=== PATIENT | female | born 1965 ===

== ENCOUNTER 2018-03-22 04:44 | Observation (INO) | payer BC ==
[2018-03-22 04:52] VITALS: BMI 24.1
[2018-03-22 05:16] LABS: BASO # 0.02 K/mm3 (0.0-2.0); BASO % 0.3 % (0.0-3.0); EOS # 0.2 (0.0-0.7); EOS % 2.6 % (1.5-5.0); GRAN # 5.14 (1.4-6.5); GRAN % 66.6 % (50.0-68.0); LYMPH # 1.8 (1.2-3.4); LYMPH % 22.9 % (22.0-35.0); MEAN CELL VOLUME 78.3 fl (80.0-105.0); MEAN CORPUSCULAR HEMOGLOBIN 25.4 pg (25.0-35.0); MEAN CORPUSCULAR HGB CONC 32.5 g/dl (31.0-37.0); MEAN PLATELET VOLUME 9.3 fl (7.0-11.0); MONO # 0.6 (0.1-0.6); MONO % 7.6 % (1.0-6.0); RBC 5.11 10^6/uL (3.5-6.1); RED CELL DISTRIBUTION WIDTH 14.2 % (11.5-14.5); WHITE BLOOD COUNT 7.7 10^3/uL (4.5-11.0)
--- NOTE | 2018-03-22 05:20 | ED PDOC ---
Arrival/HPI - General Time Seen by Provider: 03/22/18 05:03 Historian: Patient - History of Present Illness Narrative History of Present Illness (Text): 03/22/18 05:11 53 year old female, whose past medical history includes recent vaginoplasty (03/09/18), presents to the emergency department with vaginal bleeding, since 1 hour. Patient informs that since the procedure, she has mad minor bleeding, but nothing alarming. Patient informs today she woke up and found herself bleeding profusely. Patient states procedure was done at Dr Salazar's clinic. Patient denies any fevers, chills, headache, dizziness, chest pain, shortness of breath, cough, back pain, neck pain, or any other complaint. Gynecology: Dr Franklyn Salazar III Time/Duration: 1 hour Symptom Onset: Sudden Symptom Course: Unchanged Quality: Other (BLEEDING) Severity Level: Severe Activities at Onset: Sleeping Context: Home Past Medical History - Provider Review Nursing Documentation Reviewed: Yes Family/Social History - Physician Review Nursing Documentation Reviewed: Yes Family/Social History: No Known Family HX Allergies/Home Meds Allergies/Adverse Reactions: Allergies No Known Allergies Allergy (Verified 03/22/18 05:01) Review of Systems - Physician Review All systems were reviewed & negative as marked: Yes - Review of Systems Respiratory: absent: SOB Neurological: absent: Headache Physical Exam - Physical Exam Narrative Physical Exam (Text): 03/22/18 05:22 Constitutional: No acute distress. Head: Normocephalic. Atraumatic. Eyes: PERRL. ENT: Moist mucous membranes. Neck: Supple. Cardiovascular: Regular rhythm, tachycardic. Chest: No tenderness. Respiratory: Clear to auscultation bilaterally. GI: Soft. Nontender. Nondistended. Back: No CVA tenderness. Musculoskeletal: No tenderness or swelling of extremities. Skin: No rash. Neurologic: Alert, no focal deficit. Genitourinary: Significant amount of continuous bleeding, with clots. Vital Signs Reviewed: Yes Vital Signs Temp Pulse Resp BP Pulse Ox 03/22/18 05:02 97.8 F 140 H 20 127/108 H 100 Temperature: Afebrile Blood Pressure: Hypertensive Pulse: Tachycardic Respiratory Rate: Normal Appearance: Positive for: Well-Appearing, Non-Toxic, Comfortable Pain Distress: None Mental Status: Positive for: Alert and Oriented X 3 Medical Decision Making ED Course and Treatment: 03/22/18 05:23 Impression: 53 year old female presents with profuse vaginal bleeding. Plan: -- Labs -- CMP -- CBC, Platelets -- Reassess and disposition Prior Visits: Notes and results from previous visits were reviewed. Progress Notes: Patient being monitored on continuous cardic monitor. Discussed case with surgeon Roly Weller via phone, he states he will come to ED, arrive at approximately 7am. Signed out to ED day team at change of shift. - Scribe Statement The provider has reviewed the documentation as recorded by the Scribe Roberto Foley Provider Scribe Attestation: All medical record entries made by the Scribe were at my direction and personally dictated by me. I have reviewed the chart and agree that the record accurately reflects my personal performance of the history, physical exam, medical decision making, and the department course for this patient. I have also personally directed, reviewed, and agree with the discharge instructions and disposition. Disposition/Present on Arrival - Present on Arrival Any Indicators Present on Arrival: No - Disposition Have Diagnosis and Disposition been Completed?: Yes Diagnosis: Postoperative vaginal bleeding Disposition Time: 06:21 Condition: FAIR
[2018-03-22 05:29] LABS: ALB/GLOB RATIO 1.2 (1.1-1.8); ALBUMIN 4.5 g/dL (3.0-4.8); ALT/SGPT 20 U/L (7-56); AST/SGOT 21 U/L (14-36); BLOOD UREA NITROGEN 16 mg/dL (7-21); CALCIUM 9.1 mg/dL (8.4-10.5); GFR NON-AFRICAN AMERICAN > 60
[2018-03-22 05:33] LABS: INR 1.15; PARTIAL THROMBOPLASTIN TIME 27.9 Seconds (25.1-36.5); PROTHROMBIN TIME 13.3 SECONDS (9.4-12.5)
[2018-03-22] MEDS ORDERED: Tranexamic Acid 1,000 MG in Sodium Chloride 0.9% 50 ML IV STA (05:45)
[2018-03-22] MEDS ORDERED: Sodium Chloride 0.9% 1,000 ML IV STA ×2 (07:54→13:57)
[2018-03-22 08:25] LABS: BASO # 0.03 K/mm3 (0.0-2.0); BASO % 0.4 % (0.0-3.0); EOS # 0.1 (0.0-0.7); EOS % 0.8 % (1.5-5.0); GRAN # 6.23 (1.4-6.5); HEMOGLOBIN 9.7 g/dL (12.0-16.0); LYMPH # 1.5 (1.2-3.4); LYMPH % 18.1 % (22.0-35.0); MEAN CELL VOLUME 79.4 fl (80.0-105.0); MEAN CORPUSCULAR HEMOGLOBIN 24.7 pg (25.0-35.0); MEAN CORPUSCULAR HGB CONC 31.1 g/dl (31.0-37.0); MEAN PLATELET VOLUME 9.4 fl (7.0-11.0); MONO # 0.5 (0.1-0.6); MONO % 5.7 % (1.0-6.0); RBC 3.93 10^6/uL (3.5-6.1); RED CELL DISTRIBUTION WIDTH 14.1 % (11.5-14.5); WHITE BLOOD COUNT 8.3 10^3/uL (4.5-11.0)
--- NOTE | 2018-03-22 11:09 | CON ---
DATE: 03/22/2018 EMERGENCY ROOM CONSULT HISTORY OF PRESENT ILLNESS: This is a 53-year-old female presenting with vaginal bleeding 2 weeks after an uncomplicated posterior colporrhaphy. The patient was found to be in stable condition with vital signs within the normal range and a hemoglobin within the normal range. She had presented with approximately 2 hours of heavy bleeding proceeded by 2 days of light bleeding, painless, and otherwise asymptomatic. She was examined and found to have clotted blood in the vaginal vault approximately 50 mL. This was cleaned off and the suture line was inspected. Suture line is extending from the perineum along the midline of the posterior vaginal wall to the level of the mid vagina. Bimanual and rectovaginal examination confirmed an intact suture line, and no active bleeding, but a small area of suture disruption at the apex of the posterior wall vaginal incision. The area was inspected and noted to be hemostatic and was packed with Iodoform packing. The patient was observed for a brief period afterwards and was instructed to follow up at my office the following morning. She was given contact information and was in stable condition. Roly Salazar III, MD
[2018-03-22 12:13] LABS: ALB/GLOB RATIO 1.2 (1.1-1.8); ALBUMIN 3.1 g/dL (3.0-4.8); ALT/SGPT 21 U/L (7-56); AST/SGOT 17 U/L (14-36); BLOOD UREA NITROGEN 12 mg/dL (7-21); CALCIUM 7.7 mg/dL (8.4-10.5); GFR NON-AFRICAN AMERICAN > 60
--- NOTE | 2018-03-22 12:57 | CP.PCM.HP ---
<Darci Santos - Last Filed: 03/22/18 14:43> History of Present Illness - History of Present Illness History of Present Illness: Darci Santos, PGY1 Medicine History and Physical for Dr. Shafer Patient is a 53 year old female with PMHx of recent vaginoplasty (03/09/18), presented to the ED with vaginal bleeding x2 weeks in duration followed by vaginoplasty. Patient said that today her bleeding was worsening. She noticed clotted blood in her vagina. This prompted her to come to the ED. Patient states her vaginoplasty procedure was done by her [employer] physician, Dr Salazar. In the ED, vital signs were stable. Dr. Salazar came to evaluate the patient this morning and localized the patient's vaginal bleeding and sutured the area with packing in place. However, patient was noted to have a drop in hemoglobin and she had an episode of near-syncope in the ED. As a result, medical team was consulted for evaluation. Patient was examined in the ED at bedside. She explained that the reason for her vaginoplasty procedure on 03/09 was because of vaginal prolapse due to a previous childbirth. Patient claims that she did have some dizziness in the ED. She said she was falling down but caught herself. She denied hitting her head. She had no loss of consciousness. At this time, patient did not endorse chest pain, lightheadedness, dizziness, fatigue, nausea, vomiting, abdominal pain. She has some mild pelvic pain. No urinary frequency, urgency, or dysuria. A full 12 point ROS was conducted and unremarkable except as stated above. PMHx: Vaginoplasty PSHx: Vaginoplasty (03/09/18) Meds: none Allergies: NKDA SocialHx: denies smoking, drinking, and recreational drug use. 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 FHx: Liver disease in father (). Otherwise, non-contributory. Present on Admission - Present on Admission Any Indicators Present on Admission: No Review of Systems - Review of Systems All systems: reviewed and no additional remarkable complaints except (as per HPI.) Past Patient History - Past Social History Smoking Status: Never Smoked - PSYCHIATRIC Hx Substance Use: No - SURGICAL HISTORY Hx Surgeries: Yes Meds Allergies/Adverse Reactions: Allergies Allergy/AdvReac Type Severity Reaction Status Date / Time No Known Allergies Allergy Verified 03/22/18 05:01 Physical Exam - Head Exam Head Exam: ATRAUMATIC, NORMAL INSPECTION, NORMOCEPHALIC - Eye Exam Eye Exam: EOMI, Normal appearance Pupil Exam: PERRL - ENT Exam ENT Exam: Mucous Membranes Moist - Respiratory Exam Respiratory Exam: Clear to Auscultation Bilateral. absent: Rales, Rhonchi, Whe ezes - Cardiovascular Exam Cardiovascular Exam: REGULAR RHYTHM, RRR, +S1, +S2 - GI/Abdominal Exam GI & Abdominal Exam: Normal Bowel Sounds, Soft. absent: Firm, Guarding, Organomegaly, Rebound, Rigid, Tenderness - Exam Additional comments: No external bleeding noted on vaginal exam. Suture and packing was in place. Supervised by female resident physician. - Extremities Exam Extremities exam: Positive for: full ROM, normal capillary refill, normal inspection, pedal pulses present. Negative for: calf tenderness, pedal edema, tenderness - Back Exam Back exam: NORMAL INSPECTION - Neurological Exam Neurological exam: Alert, CN II-XII Intact, Normal Gait, Oriented x3 - Psychiatric Exam Psychiatric exam: Normal Affect, Normal Mood - Skin Skin Exam: Dry, Intact, Normal Color, Warm Results - Vital Signs Recent Vital Signs: Last Vital Signs Temp 97.8 F 03/22/18 05:02 Pulse 99 H 03/22/18 11:14 Resp 20 03/22/18 11:14 BP 85/43 L 03/22/18 11:14 Pulse Ox 98 03/22/18 11:14 - Labs Result Diagrams: 03/22/18 08:15 03/22/18 11:18 Labs: Laboratory Results - last 24 hr 03/22/18 03/22/18 03/22/18 05:03 05:03 05:03 WBC 7.7 RBC 5.11 Hgb 13.0 Hct 40.0 MCV 78.3 L MCH 25.4 MCHC 32.5 RDW 14.2 Plt Count 310 MPV 9.3 Gran % 66.6 Lymph % (Auto) 22.9 Cannon % (Auto) 7.6 H Eos % (Auto) 2.6 Baso % (Auto) 0.3 Gran # 5.14 Lymph # (Auto) 1.8 Cannon # (Auto) 0.6 Eos # (Auto) 0.2 Baso # (Auto) 0.02 PT 13.3 H INR 1.15 APTT 27.9 Sodium 138 Potassium 3.7 Chloride 102 Carbon Dioxide 26 Anion Gap 13 BUN 16 Creatinine 0.7 Est GFR ( Amer) > 60 Est GFR (Non-Af Amer) > 60 Random Glucose 154 H Calcium 9.1 Total Bilirubin 0.4 AST 21 ALT 20 Alkaline Phosphatase 93 Total Protein 8.1 Albumin 4.5 Globulin 3.6 Albumin/Globulin Ratio 1.2 Blood Type Blood Type Confirm Antibody Screen BBK History Checked 03/22/18 03/22/18 03/22/18 05:24 05:50 08:15 WBC 8.3 RBC 3.93 Hgb 9.7 L D Hct 31.2 L MCV 79.4 L MCH 24.7 L MCHC 31.1 RDW 14.1 Plt Count 257 MPV 9.4 Gran % 75.0 H Lymph % (Auto) 18.1 L Cannon % (Auto) 5.7 Eos % (Auto) 0.8 L Baso % (Auto) 0.4 Gran # 6.23 Lymph # (Auto) 1.5 Cannon # (Auto) 0.5 Eos # (Auto) 0.1 Baso # (Auto) 0.03 PT INR APTT Sodium Potassium Chloride Carbon Dioxide Anion Gap BUN Creatinine Est GFR ( Amer) Est GFR (Non-Af Amer) Random Glucose Calcium Total Bilirubin AST ALT Alkaline Phosphatase Total Protein Albumin Globulin Albumin/Globulin Ratio Blood Type O POSITIVE Blood Type Confirm O POSITIVE Antibody Screen Negative BBK History Checked No verified bt 03/22/18 11:18 WBC RBC Hgb Hct MCV MCH MCHC RDW Plt Count MPV Gran % Lymph % (Auto) Cannon % (Auto) Eos % (Auto) Baso % (Auto) Gran # Lymph # (Auto) Cannon # (Auto) Eos # (Auto) Baso # (Auto) PT INR APTT Sodium 139 Potassium 3.7 Chloride 110 H Carbon Dioxide 22 Anion Gap 11 BUN 12 Creatinine 0.5 L Est GFR ( Amer) > 60 Est GFR (Non-Af Amer) > 60 Random Glucose 107 Calcium 7.7 L Total Bilirubin 0.3 AST 17 ALT 21 Alkaline Phosphatase 65 Total Protein 5.8 Albumin 3.1 Globulin 2.7 Albumin/Globulin Ratio 1.2 Blood Type Blood Type Confirm Antibody Screen BBK History Checked Assessment & Plan - Assessment and Plan (Free Text) Assessment: Patient is a 53 year old female with PMHx of recent vaginoplasty (03/09/18), presented to the ED with worsening vaginal bleeding x2 weeks in duration followed by vaginoplasty. Patient was evaluated by her [employer] physician (Dr. Salazar) and bleeding was localized and sutures and packing were placed. Patient will be monitored on the floor for dizziness and a fall due to her vaginal bleeding. Plan: Dizziness and fall 2/2 Orthostatic Hypotension due to vaginal bleeding - Hgb drop from 13 to 9.7 (baseline unknown). Patient was tachycardic with HR 100s and hypotensive. She is stable and comfortable. If Hgb continues to downtrend, then will consider transfusion. - Maintenance IVF NS @ 150 cc/hr - Patient was hypotensive, BP 89/70. Will continue to monitor blood pressure. Given x2 NS boluses. - cbc q6; monitor H/H - Bed-rest due to fall; denies hitting head, loss of consciousness, exam is grossly normal and does not require further workup - orthostatic vital signs in the morning - Tylenol prn for mild pelvic pain - EKG: sinus tachycardia. No acute ST or T wave changes. - Patient has Hx of recent vaginoplasty on 03/09 due to vaginal prolapse 2/2 previous childbirth Anemia likely 2/2 vaginal bleed - iron studies ordered: iron, ferritin, TIBC, trasferrin saturation, reticulocyt e count - monitor H/H with cbc q6 DVT ppx: SCD GI ppx: PTX Diet: regular Dispo: Patient will be monitored on telemetry. Will monitor cbc q6 and transfuse if downtrending hemoglobin. Otherwise, encourage bed-rest and hydration. Case was discussed and reviewed with Dr. Shafer <Antonio Shafer - Last Filed: 03/23/18 16:46> Results - Vital Signs Recent Vital Signs: Last Vital Signs Temp 97.5 F L 03/23/18 12:00 Pulse 120 H 03/23/18 13:00 Resp 21 03/23/18 12:00 BP 116/78 03/23/18 12:00 Pulse Ox 98 03/23/18 09:00 - Labs Result Diagrams: 03/23/18 12:10 03/23/18 06:30 Labs: Laboratory Results - last 24 hr 03/22/18 03/22/18 03/22/18 05:24 15:30 15:30 WBC RBC Hgb Hct MCV MCH MCHC RDW Plt Count MPV Gran % Lymph % (Auto) Cannon % (Auto) Eos % (Auto) Baso % (Auto) Gran # Lymph # (Auto) Cannon # (Auto) Eos # (Auto) Baso # (Auto) Sodium Potassium Chloride Carbon Dioxide Anion Gap BUN Creatinine Est GFR ( Amer) Est GFR (Non-Af Amer) Random Glucose Calcium Transferrin 209.45 Ferritin 28.6 Total Bilirubin AST ALT Alkaline Phosphatase Total Protein Albumin Globulin Albumin/Globulin Ratio Blood Type O POSITIVE Antibody Screen Negative Crossmatch See Detail BBK History Checked No verified bt 03/23/18 03/23/18 03/23/18 00:30 06:30 06:30 WBC 7.4 6.0 RBC 3.62 3.41 L Hgb 9.7 L D 9.1 L Hct 29.4 L 27.6 L MCV 81.2 80.9 MCH 26.8 26.7 MCHC 33.0 33.0 RDW 15.1 H 15.0 H Plt Count 190 194 MPV 8.9 9.2 Gran % 60.0 Lymph % (Auto) 27.6 Cannon % (Auto) 9.7 H Eos % (Auto) 2.5 Baso % (Auto) 0.2 Gran # 3.58 Lymph # (Auto) 1.7 Cannon # (Auto) 0.6 Eos # (Auto) 0.2 Baso # (Auto) 0.01 Sodium 139 Potassium 3.8 Chloride 110 H Carbon Dioxide 28 Anion Gap 5 L BUN 6 L Creatinine 0.6 L Est GFR ( Amer) > 60 Est GFR (Non-Af Amer) > 60 Random Glucose 91 Calcium 7.8 L Transferrin Ferritin Total Bilirubin 0.5 AST 23 ALT 28 Alkaline Phosphatase 59 Total Protein 5.0 L Albumin 2.7 L Globulin 2.3 Albumin/Globulin Ratio 1.2 Blood Type Antibody Screen Crossmatch BBK History Checked 03/23/18 12:10 WBC 7.0 RBC 3.81 Hgb 10.1 L Hct 30.7 L MCV 80.6 MCH 26.5 MCHC 32.9 RDW 14.9 H Plt Count 208 MPV 9.1 Gran % Lymph % (Auto) Cannon % (Auto) Eos % (Auto) Baso % (Auto) Gran # Lymph # (Auto) Cannon # (Auto) Eos # (Auto) Baso # (Auto) Sodium Potassium Chloride Carbon Dioxide Anion Gap BUN Creatinine Est GFR ( Amer) Est GFR (Non-Af Amer) Random Glucose Calcium Transferrin Ferritin Total Bilirubin AST ALT Alkaline Phosphatase Total Protein Albumin Globulin Albumin/Globulin Ratio Blood Type Antibody Screen Crossmatch BBK History Checked Attending/Attestation - Attestation I have personally seen and examined this patient.: Yes I have fully participated in the care of the patient.: Yes I have reviewed all pertinent clinical information: Yes Notes (Text): 03/23/18 16:42 Medical record note made by the resident after discussion with my direction and input after the patient was personally seen and examined by me. I have reviewed the chart and agree that the record accurately reflects by personal performance of the history, physical exam, data review, and medical decision-making, in the course for the patient. I have also personally directed the plan of care. 53 year old female with PMHx of recent vaginoplasty (03/09/18), presented to the ED with vaginal bleeding x2 weeks in duration followed by vaginoplasty. Patient said that today her bleeding was worsening. She noticed clotted blood in her vagina. Patient was evaluated by her OBGYN . Dr. Salazar , he localized the patient's vaginal bleeding and sutured the area with packing in place. Patient is hypotensive and tachycardiac , Hemoglobin has dropped to 7.6. We will transfuse 2 units of PRBC and will monitor hemoglobin and hematocrit. Management plan was discussed in detail with patient. Education was provided.
[2018-03-22] MEDS ORDERED: Sodium Chloride 0.9% 1,000 ML IV SCH (13:00)
[2018-03-22 15:29] LABS: HEMOGLOBIN 7.6 g/dL (12.0-16.0); MEAN CELL VOLUME 78.8 fl (80.0-105.0); MEAN CORPUSCULAR HEMOGLOBIN 25.6 pg (25.0-35.0); MEAN CORPUSCULAR HGB CONC 32.5 g/dl (31.0-37.0); MEAN PLATELET VOLUME 9.1 fl (7.0-11.0); RBC 2.97 10^6/uL (3.5-6.1); RED CELL DISTRIBUTION WIDTH 14.3 % (11.5-14.5); WHITE BLOOD COUNT 9.2 10^3/uL (4.5-11.0)
[2018-03-22 15:56] LABS: IRON 70 ug/dL (45-180)
[2018-03-22 16:06] LABS: % IRON SATURATION 24 % (20-55); TOTAL IRON BINDING CAPACITY 288 ug/dL (265-497)
[2018-03-22] MEDS ORDERED: Pneumococcal 23-Valent Vaccine IM ONE (17:35)
[2018-03-22] MEDS ORDERED: Influenza Vaccine 60 mcg/0.5 mL SYR (4YR UP) IM ONE (17:35)
--- NOTE | 2018-03-22 23:03 | CARD ---
APPROVED REPORT Date of service: 03/22/2018 EKG Measurement Heart [id number] <Conclusion> Sinus tachycardia Small non diagnostic Q waves in the inferior leads Otherwise normal ECG
--- NOTE | 2018-03-22 23:33 | CARD ---
APPROVED REPORT Date of service: 03/22/2018 EKG Measurement Heart [id number] <Conclusion> Sinus tachycardia Baseline artifact Minor NDSTT abnormalities- probably rate related Otherwise normal ECG
[2018-03-22] MEDS: Sodium Chloride 0.9% 1,000 ML IV SCH (23:57)
[2018-03-23] MEDS ORDERED: Pantoprazole 40 mg EC Tab PO SCH (06:00)
[2018-03-23] MEDS: Sodium Chloride 0.9% 1,000 ML IV SCH (06:08)
[2018-03-23 06:45] LABS: HEMOGLOBIN 9.7 g/dL (12.0-16.0); MEAN CELL VOLUME 81.2 fl (80.0-105.0); MEAN CORPUSCULAR HEMOGLOBIN 26.8 pg (25.0-35.0); MEAN PLATELET VOLUME 8.9 fl (7.0-11.0); RBC 3.62 10^6/uL (3.5-6.1); RED CELL DISTRIBUTION WIDTH 15.1 % (11.5-14.5); WHITE BLOOD COUNT 7.4 10^3/uL (4.5-11.0)
[2018-03-23 07:19] LABS: BASO # 0.01 K/mm3 (0.0-2.0); BASO % 0.2 % (0.0-3.0); EOS # 0.2 (0.0-0.7); EOS % 2.5 % (1.5-5.0); GRAN # 3.58 (1.4-6.5); HEMOGLOBIN 9.1 g/dL (12.0-16.0); LYMPH # 1.7 (1.2-3.4); LYMPH % 27.6 % (22.0-35.0); MEAN CELL VOLUME 80.9 fl (80.0-105.0); MEAN CORPUSCULAR HEMOGLOBIN 26.7 pg (25.0-35.0); MEAN PLATELET VOLUME 9.2 fl (7.0-11.0); MONO # 0.6 (0.1-0.6); MONO % 9.7 % (1.0-6.0); RBC 3.41 10^6/uL (3.5-6.1)
[2018-03-23 07:41] LABS: ALB/GLOB RATIO 1.2 (1.1-1.8); ALBUMIN 2.7 g/dL (3.0-4.8); ALT/SGPT 28 U/L (7-56); AST/SGOT 23 U/L (14-36); BLOOD UREA NITROGEN 6 mg/dL (7-21); CALCIUM 7.8 mg/dL (8.4-10.5); GFR NON-AFRICAN AMERICAN > 60
[2018-03-23 12:34] LABS: HEMOGLOBIN 10.1 g/dL (12.0-16.0); MEAN CELL VOLUME 80.6 fl (80.0-105.0); MEAN CORPUSCULAR HEMOGLOBIN 26.5 pg (25.0-35.0); MEAN CORPUSCULAR HGB CONC 32.9 g/dl (31.0-37.0); MEAN PLATELET VOLUME 9.1 fl (7.0-11.0); RBC 3.81 10^6/uL (3.5-6.1); RED CELL DISTRIBUTION WIDTH 14.9 % (11.5-14.5)
--- NOTE | 2018-03-23 14:09 | CP.PCM.DIS ---
<TomDarci - Last Filed: 03/23/18 17:13> Provider - Provider Date of Admission: 03/22/18 11:27 Attending physician: Antonio Shafer MD Consults: 03/22/18 14:05 Physician Consult Routine Comment: Consulting Provider: Roly Salazar III Consulting Physician: Roly Salazar III Reason for Consult: vaginal bleed s/p vaginoplasty Time Spent in preparation of Discharge (in minutes): 35 Hospital Course - Lab Results Lab Results: Most Recent Lab Values WBC 7.0 10^3/uL (4.5-11.0) 03/23/18 12:10 RBC 3.81 10^6/uL (3.5-6.1) 03/23/18 12:10 Hgb 10.1 g/dL (12.0-16.0) L 03/23/18 12:10 Hct 30.7 % (36.0-48.0) L 03/23/18 12:10 MCV 80.6 fl (80.0-105.0) 03/23/18 12:10 MCH 26.5 pg (25.0-35.0) 03/23/18 12:10 MCHC 32.9 g/dl (31.0-37.0) 03/23/18 12:10 RDW 14.9 % (11.5-14.5) H 03/23/18 12:10 Plt Count 208 10^3/uL (120.0-450.0) 03/23/18 12:10 MPV 9.1 fl (7.0-11.0) 03/23/18 12:10 Gran % 60.0 % (50.0-68.0) 03/23/18 06:30 Lymph % (Auto) 27.6 % (22.0-35.0) 03/23/18 06:30 [place] % (Auto) 9.7 % (1.0-6.0) H 03/23/18 06:30 Eos % (Auto) 2.5 % (1.5-5.0) 03/23/18 06:30 Baso % (Auto) 0.2 % (0.0-3.0) 03/23/18 06:30 Gran # 3.58 (1.4-6.5) 03/23/18 06:30 Lymph # (Auto) 1.7 (1.2-3.4) 03/23/18 06:30 [place] # (Auto) 0.6 (0.1-0.6) 03/23/18 06:30 Eos # (Auto) 0.2 (0.0-0.7) 03/23/18 06:30 Baso # (Auto) 0.01 K/mm3 (0.0-2.0) 03/23/18 06:30 Retic Count 1.15 % (0.5-1.5) 03/22/18 15:30 PT 13.3 SECONDS (9.4-12.5) H 03/22/18 05:03 INR 1.15 03/22/18 05:03 APTT 27.9 Seconds (25.1-36.5) 03/22/18 05:03 Sodium 139 mmol/L (132-148) 03/23/18 06:30 Potassium 3.8 mmol/L (3.6-5.0) 03/23/18 06:30 Chloride 110 mmol/L (98-107) H 03/23/18 06:30 Carbon Dioxide 28 mmol/L (21-33) 03/23/18 06:30 Anion Gap 5 (10-20) L 03/23/18 06:30 BUN 6 mg/dL (7-21) L 03/23/18 06:30 Creatinine 0.6 mg/dl (0.7-1.2) L 03/23/18 06:30 Est GFR ( Amer) > 60 03/23/18 06:30 Est GFR (Non-Af Amer) > 60 03/23/18 06:30 Random Glucose 91 mg/dL (70-110) 03/23/18 06:30 Calcium 7.8 mg/dL (8.4-10.5) L 03/23/18 06:30 Iron 70 ug/dL (45-180) 03/22/18 15:30 TIBC 288 ug/dL (265-497) 03/22/18 15:30 % Saturation 24 % (20-55) 03/22/18 15:30 Transferrin 209.45 mg/dL (206-381) 03/22/18 15:30 Ferritin 28.6 ng/mL 03/22/18 15:30 Total Bilirubin 0.5 mg/dL (0.2-1.3) 03/23/18 06:30 AST 23 U/L (14-36) 03/23/18 06:30 ALT 28 U/L (7-56) 03/23/18 06:30 Alkaline Phosphatase 59 U/L (38-126) 03/23/18 06:30 Total Protein 5.0 g/dL (5.8-8.3) L 03/23/18 06:30 Albumin 2.7 g/dL (3.0-4.8) L 03/23/18 06:30 Globulin 2.3 gm/dL 03/23/18 06:30 Albumin/Globulin Ratio 1.2 (1.1-1.8) 03/23/18 06:30 Blood Type O POSITIVE 03/22/18 05:24 Blood Type Confirm O POSITIVE 03/22/18 05:50 Antibody Screen Negative 03/22/18 05:24 Crossmatch See Detail 03/22/18 05:24 BBK History Checked No verified bt 03/22/18 05:24 - Hospital Course Hospital Course: Darci Santos, PGY1 Discharge Summary for Dr. Shafer Patient is a 53 year old female with PMHx of recent vaginoplasty (03/09/18) who presented to the ED for vaginal bleeding x2 weeks in duration since her recent vaginoplasty procedure for vaginal prolapse due to previous childbirth. Bleeding was worsening and sh had noticed clotting of blood in her vagina; this prompted her to come to the ED. Patient states her vaginoplasty procedure was done by her [facility] physician, Dr Salazar. In the ED, vital signs were stable. Her [facility] Physician, Dr. Salazar came to evaluate the patient at [facility] [place]; he localized the patient's vaginal bleeding and sutured the area with packing in place. However, during this time, patient was noted to have a drop in her Hemoglobin and she became symptomatic -- with dizziness and fall (did not hit her head). Medical team was consulted for evaluation. Patient admitted to telemetry for monitoring. She was admitted for dizziness and fall 2/2 orthostatic hypotension due to vaginal bleeding after recent vaginoplasty. Patient had x2 transfusions pRBC during hospital course. Her Hemoglobin (initially presented Hgb 13) had dropped down to 7.6 but after transfusion it improved to 9.7. Patient on examination is not overtly bleeding. Fam was placed since she had some urinary retention and difficulty urinating. Fam was eventually removed and she is voiding fine. Patient is hemodynamically stable. She is asymptomatic. Labs and vitals reviewed, patient is safe for discharge home. She will follow up with her [facility] physician as outpatient. Discharge Exam - Head Exam Head Exam: ATRAUMATIC, NORMAL INSPECTION, NORMOCEPHALIC - Eye Exam Eye Exam: Normal appearance - ENT Exam ENT Exam: Mucous Membranes Moist - Respiratory Exam Respiratory Exam: Clear to PA & Lateral, UNREMARKABLE. absent: Accessory Muscle Use, Rales, Rhonchi, Wheezes, Stridor - Cardiovascular Exam Cardiovascular Exam: RRR, +S1, +S2 - GI/Abdominal Exam GI & Abdominal Exam: Normal Bowel Sounds, Soft. absent: Distended, Firm, Guarding, Mass, Rigid, Tenderness - Exam Additional comments: Vaginal exam: sutures in place. No bleeding or signs of infection. - Extremities Exam Extremities exam: full ROM, normal capillary refill, normal inspection, pedal pulses present - Neurological Exam Neurological exam: Alert, CN II-XII Intact, Normal Gait, Oriented x3, Reflexes Normal - Psychiatric Exam Psychiatric exam: Normal Affect, Normal Mood - Skin Skin Exam: Dry, Intact, Normal Color, Warm Discharge Plan - Discharge Medications Prescriptions: Docusate Sodium [Colace] 100 mg PO DAILY PRN #30 capsule PRN Reason: Constipation RX: Ferrous Sulfate [Feosol] 324 mg PO TID #90 ect - Follow Up Plan Condition: FAIR Disposition: HOME/ ROUTINE Instructions: Syncope (Fainting) Additional Instructions: 1. Please follow up with your primary medical doctor within 3-5 days of discharge. 2. You have been discharged home with the following medications: - Ferrous Sulfate 324mg one pill 3 times per day (Iron pill for anemia)- this can make you constipated - Colace 100mg one pill once daily NEEDED for constipation 3. Follow up with Dr Salazar. ([facility]) on , March 24 any time after 10am. 4. If your symptoms return, please go to the nearest emergency department. Referrals: Roly Salazar III, MD [Staff Provider] - <Antonio Shafer - Last Filed: 03/23/18 17:23> Provider - Provider Date of Admission: 03/22/18 11:27 Attending physician: Antonio Shafer MD Consults: 03/22/18 14:05 Physician Consult Routine Comment: Consulting Provider: Roly Salazar III Consulting Physician: Roly Salazar III Reason for Consult: vaginal bleed s/p vaginoplasty Hospital Course - Lab Results Lab Results: Most Recent Lab Values WBC 7.0 10^3/uL (4.5-11.0) 03/23/18 12:10 RBC 3.81 10^6/uL (3.5-6.1) 03/23/18 12:10 Hgb 10.1 g/dL (12.0-16.0) L 03/23/18 12:10 Hct 30.7 % (36.0-48.0) L 03/23/18 12:10 MCV 80.6 fl (80.0-105.0) 03/23/18 12:10 MCH 26.5 pg (25.0-35.0) 03/23/18 12:10 MCHC 32.9 g/dl (31.0-37.0) 03/23/18 12:10 RDW 14.9 % (11.5-14.5) H 03/23/18 12:10 Plt Count 208 10^3/uL (120.0-450.0) 03/23/18 12:10 MPV 9.1 fl (7.0-11.0) 03/23/18 12:10 Gran % 60.0 % (50.0-68.0) 03/23/18 06:30 Lymph % (Auto) 27.6 % (22.0-35.0) 03/23/18 06:30 [place] % (Auto) 9.7 % (1.0-6.0) H 03/23/18 06:30 Eos % (Auto) 2.5 % (1.5-5.0) 03/23/18 06:30 Baso % (Auto) 0.2 % (0.0-3.0) 03/23/18 06:30 Gran # 3.58 (1.4-6.5) 03/23/18 06:30 Lymph # (Auto) 1.7 (1.2-3.4) 03/23/18 06:30 [place] # (Auto) 0.6 (0.1-0.6) 03/23/18 06:30 Eos # (Auto) 0.2 (0.0-0.7) 03/23/18 06:30 Baso # (Auto) 0.01 K/mm3 (0.0-2.0) 03/23/18 06:30 Retic Count 1.15 % (0.5-1.5) 03/22/18 15:30 PT 13.3 SECONDS (9.4-12.5) H 03/22/18 05:03 INR 1.15 03/22/18 05:03 APTT 27.9 Seconds (25.1-36.5) 03/22/18 05:03 Sodium 139 mmol/L (132-148) 03/23/18 06:30 Potassium 3.8 mmol/L (3.6-5.0) 03/23/18 06:30 Chloride 110 mmol/L (98-107) H 03/23/18 06:30 Carbon Dioxide 28 mmol/L (21-33) 03/23/18 06:30 Anion Gap 5 (10-20) L 03/23/18 06:30 BUN 6 mg/dL (7-21) L 03/23/18 06:30 Creatinine 0.6 mg/dl (0.7-1.2) L 03/23/18 06:30 Est GFR ( Amer) > 60 03/23/18 06:30 Est GFR (Non-Af Amer) > 60 03/23/18 06:30 Random Glucose 91 mg/dL (70-110) 03/23/18 06:30 Calcium 7.8 mg/dL (8.4-10.5) L 03/23/18 06:30 Iron 70 ug/dL (45-180) 03/22/18 15:30 TIBC 288 ug/dL (265-497) 03/22/18 15:30 % Saturation 24 % (20-55) 03/22/18 15:30 Transferrin 209.45 mg/dL (206-381) 03/22/18 15:30 Ferritin 28.6 ng/mL 03/22/18 15:30 Total Bilirubin 0.5 mg/dL (0.2-1.3) 03/23/18 06:30 AST 23 U/L (14-36) 03/23/18 06:30 ALT 28 U/L (7-56) 03/23/18 06:30 Alkaline Phosphatase 59 U/L (38-126) 03/23/18 06:30 Total Protein 5.0 g/dL (5.8-8.3) L 03/23/18 06:30 Albumin 2.7 g/dL (3.0-4.8) L 03/23/18 06:30 Globulin 2.3 gm/dL 03/23/18 06:30 Albumin/Globulin Ratio 1.2 (1.1-1.8) 03/23/18 06:30 Blood Type O POSITIVE 03/22/18 05:24 Blood Type Confirm O POSITIVE 03/22/18 05:50 Antibody Screen Negative 03/22/18 05:24 Crossmatch See Detail 03/22/18 05:24 BBK History Checked No verified bt 03/22/18 05:24 Attending/Attestation - Attestation I have personally seen and examined this patient.: Yes I have fully participated in the care of the patient.: Yes I have reviewed all pertinent clinical information, including history, physical exam and plan: Yes Notes (Text): 03/23/18 17:18 Medical record note made by the resident after discussion with my direction and input after the patient was personally seen and examined by me. I have reviewed the chart and agree that the record accurately reflects by personal performance of the history, physical exam, data review, and medical decision-making, in the course for the patient. I have also personally directed the plan of care. 53 year old female with PMHx of recent vaginoplasty (03/09/18), presented to the ED with vaginal bleeding x2 weeks in duration followed by vaginoplasty. Patient said that today her bleeding was worsening. She was noticed to have clotted blood in her vagina. Patient was evaluated by her OBGYN . Dr. Salazar , he localized the patient's vaginal bleeding and sutured the area with packing in place. Patient was hypotensive and tachycardiac , Hemoglobin dropped to 7.6. He is SP transfuse 2 units of PRBC .Hemoglobin is 10.1 She is feeling better,Patient is ambulatory. Patient will be discharged home and will follow up with her OBGYN. Management plan was discussed in detail with patient. Education was provided.
[2018-03-23 14:51] VITALS: PULSE 120; O2SAT 98
[2018-03-23 15:00] VITALS: BP 116/78; RESP 21; TEMP 97.5
== END 2018-03-23 16:33 | disposition home or self-care (01) ==
LOC: ED 04:44 → ERH 11:27 → 2RNO 16:12
PROVIDERS: ADMIT Internal Medicine; ATTEND Internal Medicine
DX: N99.820 Postprocedural hemorrhage of a genitourinary system organ or structure following a genitourinary system procedure (principal); I95.1 Orthostatic hypotension; N81.10 Cystocele, unspecified
CPT/HCPCS: 36415; 36430; 80053; 82728; 83540; 84466; 85025; 85027; 85044; 85610; 85730; 86850; 86900; 86920; 93005; 99285; G0378; J7030; P9016